=== PATIENT | female | born 1975 | race Two or more races ===

== ENCOUNTER 2018-06-06 16:14 | Emergency (ER) | payer SELFPAY ==
[~2018-06-06] VITALS: Ht 157.5 cm; Wt 68.0 kg
[2018-06-06 16:18] VITALS: BP 178/111
== END 2018-06-06 17:22 | disposition home or self-care (01) ==
LOC: ER 16:24
DX: M54.2 Cervicalgia (principal); V49.59XA Passenger injured in collision with other motor vehicles in traffic accident, initial encounter; Y93.89 Activity, other specified; Y92.413 State road as the place of occurrence of the external cause; Y99.8 Other external cause status
CPT/HCPCS: A4606; Z7502; Z7610